=== PATIENT | female | born 1995 | race Caucasian/White ===

== ENCOUNTER 2021-01-31 14:44 | Emergency (ER) | payer BC, OTHER, MEDICAID ==
[~2021-01-31] VITALS: Ht 162.6 cm; Wt 69.4 kg
[2021-01-31] MEDS ORDERED: DAILY VITAMIN1 EAC6 PO (14:51)
[2021-01-31] MEDS ORDERED: PROTONIX40 M4 PO (14:51)
[2021-01-31] MEDS ORDERED: SERTRALINE HCL100 MG PO (14:51)
[2021-01-31] MEDS ORDERED: STOOL SOFTENER100 MG PO (14:52)
[2021-01-31 15:13] LABS: ABSOLUTE BASOPHILS 0.1 thou/uL (0.0-0.2); ABSOLUTE EOSINOPHILS 0.2 thou/uL (0.0-0.7); ABSOLUTE LYMPHOCYTES 1.8 thou/uL (0.8-5.3); ABSOLUTE MONOCYTES 0.7 thou/uL (0.0-1.2); ABSOLUTE NEUTROPHILS 4.5 thou/uL (1.6-8.1); BASOPHILS 0.7 %; EOSINOPHILS 2.3 %; HEMATOCRIT 34.4 % (37.0-47.0); HEMOGLOBIN 11.6 gm/dL (12.0-15.0); LYMPHOCYTES 24.9 %; MCH 25.7 pg (26.0-34.0); MCHC 33.8 g/dL (28.0-37.0); MONOCYTES 9.9 %; MPV 9.2 fl. (7.2-11.1); NUCLEATED RBCS 0 /100WBC; PLATELET COUNT* 322 thou/uL (150-400); POLYS 62.2 %; RBC 4.53 mil/uL (4.20-5.00); RDW-CV 17.8 % (10.5-14.5); WBC 7.3 thou/uL (4.0-11.0)
[2021-01-31 15:27] LABS: ALBUMIN 3.1 g/dL (3.4-5.0); CALCIUM 8.8 mg/dL (8.5-10.1); CREATININE 0.6 mg/dL (0.6-1.3); POTASSIUM 3.8 mmol/L (3.5-5.1); TOTAL BILIRUBIN 0.5 mg/dL (<0.1-1.0); TOTAL PROTEIN 7.1 g/dL (6.4-8.2)
--- NOTE | 2021-01-31 15:46 | EKG ---
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
[2021-01-31 16:09] VITALS: BP 100/45
== END 2021-01-31 16:09 | disposition home or self-care (01) ==
LOC: M.ERS 14:44
PROVIDERS: Family Medicine
DX: E86.0 Dehydration (principal); R55 Syncope and collapse; Z88.2 Allergy status to sulfonamides; Z88.6 Allergy status to analgesic agent